=== PATIENT | male | born 1995 | race Caucasian/White ===

== ENCOUNTER 2017-10-31 14:58 | Emergency (ER) | payer OTHER ==
[2017-10-31] MEDS ORDERED: IPRATROPIUM/ALBUTEROL 3 ML DEYVIAL IH ONE (15:21)
--- NOTE | 2017-10-31 15:29 | EDPHY ---
H & P Stated Complaint: asthma exacerbation/has been off his dulera 8 months Time Seen by Provider: 10/31/17 15:14 HPI/ROS: CHIEF COMPLAINT: Cough, shortness of breath HISTORY OF PRESENT ILLNESS: 21-year-old male with asthma presents with cough and shortness of breath. Onset of wheezing several days ago, associated with a moist cough and gradually increasing shortness of breath. Ran out of his inhaler several months ago. Also has chronic pain in the left shoulder related to recurrent dislocations. No URI symptoms or fever. REVIEW OF SYSTEMS: complete 10 point ROS reviewed and is negative except for the noted elements in the HPI - Personal History Current Tetanus Diphtheria and Acellular Pertussis (TDAP): Yes - Medical/Surgical History Hx Asthma: Yes Hx Chronic Respiratory Disease: No Hx Diabetes: No Hx Cardiac Disease: No Hx Renal Disease: No Hx Cirrhosis: No Hx Alcoholism: No Hx HIV/AIDS: No Hx Splenectomy or Spleen Trauma: No Other PMH: asthma chronic l shoulder dislocation - Social History Smoking Status: Light smoker Alcohol Use: Sober - Physical Exam Exam: General Appearance: Alert, pleasant Eyes: Pupils equal and round, no conjunctival pallor or injection ENT, Mouth: Mucous membranes moist Neck: Normal inspection Respiratory: audible diffuse inspiratory and expiratory wheezing Cardiovascular: Regular rate and rhythm Abdomen: Soft and nontender Neurological: A&O, nonfocal, normal gait Skin: Warm and dry, no rash Extremities: Normal inspection Psychiatric: Mood and affect normal Constitutional: Initial Vital Signs Temperature (C) 36.5 C 10/31/17 15:01 Heart Rate 103 H 10/31/17 15:01 Respiratory Rate 20 10/31/17 15:01 Blood Pressure 179/81 H 10/31/17 15:01 O2 Sat (%) 94 10/31/17 15:01 O2 Delivery Mode Room Air Allergies/Adverse Reactions: guaifenesin Allergy (Verified 10/31/17 15:00) Home Medications: Medication Instructions Recorded Advair 100/50 (*) 10/31/17 Albuterol 10/31/17 Albuterol Sulfate [ALBUTEROL 1.25 mg IH Q6 PRN #30 10/31/17 SULFATE 1.25 MG/3 ML] Albuterol [Proventil Inhaler HFA 2 puffs IH QID PRN #1 mdi 10/31/17 (*)] predniSONE 1 tab PO DAILY #15 tab 10/31/17 Medical Decision Making ED Course/Re-evaluation: Patient presents with an asthma exacerbation. DuoNeb and prednisone given. After the duoneb, I reexamined the pt. He actually has no wheezing when he breathes through his nose. He is making the sound of wheezing using his vocal cords. c/w vocal cord dysfunction. d/w pt, O2 sat 97% on RA. Safe/stable for d/c home. Pt relates that he was just seen at another hospital and is seeking narcotic pain medications for chronic shoulder pain. He apparently already received prescriptions for albuterol and prednisone at the other hospital. I informed him that we do not give narcotics for chronic pain. I strongly encouraged him to follow up with primary care. - Data Points Medications Given: Discontinued Medications Albuterol/Ipratropium (Duoneb) 3 ml IH EDNOW ONE Stop: 10/31/17 15:22 Last Admin: 10/31/17 15:24 Dose: 3 ml Prednisone (Prednisone) 60 mg PO EDNOW ONE Stop: 10/31/17 15:31 Last Admin: 10/31/17 15:35 Dose: 60 mg Departure - Departure Disposition: Home, Routine, Self-Care Clinical Impression: Exacerbation of asthma Qualifiers: Asthma severity: moderate Asthma persistence: unspecified Qualified Code(s): J45.901 - Unspecified asthma with (acute) exacerbation Condition: Good Instructions: Bronchospasm (ED) Referrals: Tony Byrne MD [Medical Doctor] - 2-3 days, if not improved (Call to make an appointment.) Prescriptions: Albuterol [Proventil Inhaler HFA (*)] 2 puffs IH QID PRN #1 mdi PRN Reason: Short Of Breath/Dyspnea Albuterol Sulfate [ALBUTEROL SULFATE 1.25 MG/3 ML] 1.25 mg IH Q6 PRN #30 PRN Reason: Wheezing predniSONE 1 tab PO DAILY #15 tab
[2017-10-31] MEDS ORDERED: predniSONE 20 MG TAB PO ONE (15:30)
[2017-10-31 15:40] VITALS: BP 135/86
== END 2017-10-31 16:05 | disposition home or self-care (01) ==
DX: J45.909 Unspecified asthma, uncomplicated (principal)
CPT/HCPCS: J7512